=== PATIENT | female | born 1975 | race Caucasian/White ===

== ENCOUNTER → 2020-11-16 | Outpatient (CLI) | payer BC ==
--- NOTE | 2020-11-18 11:08 | PATH ---
[address] [address] PATHOLOGY RPT PROCEDURE Name: ALLYSON BOYCE Johan Room: [facility]#: [id number] Admission: 11/16/20 Date of : 71 Discharge: Report #: [id number] Path Case #: [id number] [facility] Accession Number: [id number] . 01 Material submitted: . PART A: breast - RIGHT BREAST TISSUE #1. Modifiers: right PART B: breast - RIGHT BREAST TISSUE #2. Modifiers: right . 01 Clinical history: . RIGHT BREAST STEREOTACTIC BIOPSY FOR CALCIFICATION . 02 Diagnosis: A. Breast "right calcifications #1", stereotactic biopsy: - Fibrocystic changes, including areas of dense fibrosis, usual ductal hyperplasia, apocrine metaplasia, adenosis, cyst formation and duct ectasia. - Microcalcifications, luminal. - Negative for atypia and malignancy. . B. Breast "right calcifications #2", stereotactic biopsy: - Fibrocystic changes including usual ductal hyperplasia, cyst formation, duct ectasia and adenosis. - Luminal microcalcifications. - Negative for atypia and malignancy. . (AARTI:jody; 11/17/2020) ANGELINA 11/18/2020 1013 Local . 02 Electronically signed: . Courtney Jimenez MD, Pathologist NPI- [id number] . 01 Gross description: . A. Received in formalin labeled "Allyson Boyce and right breast calcifications #1". Received in a cassette labeled "KS S14" are 3 white-yellow fibroadipose tissue breast cores ranging from a 1.6-2.0 cm in length and 0.3-0.4 cm in diameter. Also, submitted are multiple white-yellow fibroadipose breast cores ranging from 1.0-1.8 cm in length and 0.3-0.4 cm in diameter. The specimen was collected 11/16/2020 at 1100 hours and placed in formalin at 1103 hours. The specimen will be removed from formalin on 11/16/2020 at 1140 hours. The specimen will be in formalin more than 6 hours and less than 72 hours. The specimen is entirely submitted in cassettes A1 (cassette labeled KS S14) and A2 thru A5 (remaining breast cores). . B. Received in formalin labeled "Allyson Boyce and right breast calcifications #2". Received in an unlabeled cassette are 2 white-yellow fibroadipose breast tissue cores ranging from 1.2-1.6 [place] [address] PATHOLOGY RPT PROCEDURE Name: ALLYSON BOYCE Johan Room: [facility]#: [id number] Admission: 11/16/20 Date of : 71 Discharge: Report #: [id number] Path Case #: [id number] 0.2-0.3 cm in diameter. Also, submitted are multiple white-yellow breast tissue core fragments ranging from a 0.5-1.6 cm in length and 0.2-0.3 cm in diameter. The specimen was collected 11/16/2020 at 1140 hours and placed in formalin at 1150 hours. The specimen will be removed from formalin on 11/16/2020 at 1140 hours. The specimen will be in formalin more than 6 hours and less than 72 hours. The specimen is entirely submitted in cassettes B1 (un-labeled cassette tissue) and B2 through B3 (remaining breast cores). ([facility]; 11/16/2020) J/[facility] 11/16/2020 1910 Local . 02 Pathologist provided ICD-10: N60.11, N60.31, N60.81, N60.42, R92.0 . 02 CPT . 993793, 397125 Specimen Comment: A courtesy copy of this report has been sent to [phone], [phone] Specimen Comment: [id number] Specimen Comment: Report sent to / DR VUONG Performed at: 01 [facility] [address], [place], [place] [id number] MD Sachin Acosta MD Phone: [phone] Performed at: [address] [facility] [address] [id number] MD Amando Thomas MD Phone: [phone]
== END ==
LOC: M.RAD 09:55
PROVIDERS: ATTEND Surgery
DX: R92.8 Other abnormal and inconclusive findings on diagnostic imaging of breast (principal)

== ENCOUNTER → 2021-05-31 | Outpatient (CLI) | payer BC | LOC: M.RAD 12-08 11:00 | PROVIDERS: ATTEND Surgery | DX: N64.89 Other specified disorders of breast (principal); N60.19 Diffuse cystic mastopathy of unspecified breast ==